=== PATIENT | male | born 1985 | race Caucasian/White ===

== ENCOUNTER 2016-09-10 10:36 | Emergency (ER) | payer OTHER ==
[~2016-09-10] VITALS: Ht 180.3 cm; Wt 72.0 kg
[~2016-09-10 10:36] MED LIST: CLIN1CAP6 PO; DIAZ5TAB PO; IBUP800T23 PO
[2016-09-10 10:38] VITALS: BP 167/91; PULSE 117; RESP 15; TEMP 98.4; O2SAT 95
[2016-09-10] MEDS ORDERED: SODIUM CHLORIDE 0.9% FLUSH 5 ML FLUSH IVF PRN (12:30)
[2016-09-10] MEDS ORDERED: ASPIRIN 81 MG CHEW TAB PO ONE (12:30)
--- NOTE | 2016-09-10 12:30 | PD ---
HPI Chief Complaint: Skin Problem Time Seen by Provider: 12:29 Travel History International Travel<30 days: No Contact w/Intl Traveler<30days: No Traveled to known affect area: No History of Present Illness HPI 30-year-old male presents to the emergency Department with complaint of an infection to his right hand times 2 days. Reports being seen about a month ago for infections to his right arm that he took clindamycin for and they went away. He said he scratched himself on his hand this morning and it turned into an infection again. Denies fever, chills nausea, vomiting. He is complaining of chest pain and shortness of breath since last night. He said he couldn't sleep because he couldn't breathe last night. He does have history of anxiety and took 2 of his anxiety medications morning with no relief of his symptoms. Reports the chest pain is substernal. Reports it as a pressure. Says that it is constant and fluctuates in intensity. Rates the chest pain a 5 or 6 out of 10 at this time. Has not taken any medications or drainage from his to alleviate his symptoms. No known aggravating or relieving factors. Denies family cardiac history. Reports tobacco use daily. Denies history of DVT or PE. Denies hemoptysis. Denies recent travel, hospitalization, surgery. Denies IV drug use. Denies leg edema. Allergic to penicillin. Up-to-date on tetanus vaccination. No other modifying factors or associated signs and symptoms. PFSH Past Medical History Arthritis: No Asthma: No Anxiety: Yes Depression: No Cancer: No High Cholesterol: No Chemotherapy: No Chest Pain: No Congestive Heart Failure: No COPD: No Cerebrovascular Accident: No Diabetes: No Diminished Hearing: No GERD: Yes Headaches: Yes Kidney Stones: No Radiation Therapy: No Renal Failure: No Seizures: No Sleep Apnea: No Thyroid Disease: No Past Surgical History Abdominal Surgery: No Ear Surgery: No Eye Surgery: No Oral Surgery: Yes (4 WISDOM TEETH) Thoracic Surgery: No Social History Alcohol Use: Yes (DAILY) Tobacco Use: Yes (3-4 CIGS DAILY) Substance Use: No Allergies-Medications (Allergen,Severity, Reaction): Coded Allergies: Penicillin (Verified Allergy, Severe, HIVES, 09/10/16) Reported Meds & Prescriptions Reported Meds & Active Scripts Active Ibuprofen 800 Mg Tab 800 Mg PO Q6HR PRN Clindamycin (Clindamycin HCl) 300 Mg Cap 450 Mg PO Q8H 10 Days Reported Diazepam 5 Mg Tab 5 Mg PO BID PRN Review of Systems Except as stated in HPI: all other systems reviewed are Neg Physical Exam Narrative GENERAL: Well-nourished, well-developed male patient, in no acute distress; afebrile, nontoxic-appearing SKIN: Warm and dry. There is an indurated area to the dorsal aspect of the right hand which measures about 0.5 cm in diameter. It is fluctuant and there is pointing, but no drainage. There is a zone of inflammation around it but no lymphangitis. Right upper extremity is supple and nontender with 2+ radial pulses and sensory intact without erythema or edema. HEAD: Atraumatic. Normocephalic. EYES: Pupils equal and round. No scleral icterus. No injection or drainage. ENT: Mucosa pink and moist. NECK: Trachea midline. No JVD. CHEST: No reproducible chest wall tenderness; no crepitance or deformity. No retractions or use of accessory muscles. CARDIOVASCULAR: Tachycardic rate and rhythm 110-120's. No murmur appreciated. RESPIRATORY: No accessory muscle use. Clear to auscultation. Breath sounds equal bilaterally. GASTROINTESTINAL: Abdomen soft, non-tender, nondistended. Hepatic and splenic margins not palpable. Bowel sounds are active 4 quadrants. MUSCULOSKELETAL: No obvious deformities. No clubbing. No cyanosis. No edema. NEUROLOGICAL: Awake and alert. Oriented 3. No obvious cranial nerve deficits. Motor grossly within normal limits. Normal speech. Moves all extremities. 5/5 strength to all extremities. PSYCHIATRIC: Appropriate mood and affect; insight and judgment normal. Data Data Last Documented VS Vital Signs Date Time Temp Pulse Resp B/P Pulse Ox O2 Delivery O2 Flow Rate FiO2 09/10/16 13:10 98 Room Air 09/10/16 13:10 87 18 128/85 129/90 09/10/16 10:38 98.4 Orders Electrocardiogram (09/10/16 12:25) Basic Metabolic Panel (Bmp) (09/10/16 12:25) Complete Blood Count With Diff (09/10/16 12:25) Magnesium (Mg) (09/10/16 12:25) Prothrombin Time / Inr (Pt) (09/10/16 12:25) Act Partial Throm Time (Ptt) (09/10/16 12:25) Troponin I (09/10/16 12:25) Chest, Single Ap (09/10/16 12:25) Ecg Monitoring (09/10/16 12:25) Bilateral Bp Monitoring (09/10/16 12:25) Iv Access Insert/Monitor (09/10/16 12:25) Oximetry (09/10/16 12:25) Oxygen Administration (09/10/16 12:25) Aspirin Chew (Aspirin Chew) (09/10/16 12:30) Sodium Chloride 0.9% Flush (Ns Flush) (09/10/16 12:30) Ct Pulmonary Angiogram (09/10/16 ) Wound Culture And Gram Stain (09/10/16 12:25) Iohexol 350 Inj (Omnipaque 350 Inj) (09/10/16 13:44) Labs Laboratory Tests Test 09/10/16 12:55 White Blood Count 10.3 TH/MM3 Red Blood Count 4.92 MIL/MM3 Hemoglobin 14.9 GM/DL Hematocrit 44.1 % Mean Corpuscular Volume 89.6 FL Mean Corpuscular Hemoglobin 30.2 PG Mean Corpuscular Hemoglobin 33.7 % Concent Red Cell Distribution Width 14.3 % Platelet Count 275 TH/MM3 Mean Platelet Volume 6.3 FL Neutrophils (%) (Auto) 76.0 % Lymphocytes (%) (Auto) 16.1 % Monocytes (%) (Auto) 6.7 % Eosinophils (%) (Auto) 0.7 % Basophils (%) (Auto) 0.5 % Neutrophils # (Auto) 7.8 TH/MM3 Lymphocytes # (Auto) 1.6 TH/MM3 Monocytes # (Auto) 0.7 TH/MM3 Eosinophils # (Auto) 0.1 TH/MM3 Basophils # (Auto) 0.1 TH/MM3 CBC Comment DIFF FINAL Differential Comment Prothrombin Time 11.1 SEC Prothromb Time International 1.0 RATIO Ratio Activated Partial 27.5 SEC Thromboplast Time Sodium Level 137 MEQ/L Potassium Level 4.0 MEQ/L Chloride Level 102 MEQ/L Carbon Dioxide Level 25.6 MEQ/L Anion Gap 9 MEQ/L Blood Urea Nitrogen 9 MG/DL Creatinine 0.86 MG/DL Estimat Glomerular Filtration 106 ML/MIN Rate Random Glucose 77 MG/DL Calcium Level 8.9 MG/DL Magnesium Level 2.1 MG/DL Troponin I LESS THAN 0.02 NG/ML MDM Medical Decision Making Medical Screen Exam Complete: Yes Emergency Medical Condition: Yes Medical Record Reviewed: Yes Differential Diagnosis Cellulitis, abscess, septic emboli, NC, ACS, PE Narrative Course 30-year-old male with a small abscess to the dorsal aspect of his right hand. See my procedure note for incision and drainage. Wound culture pending. Patient is also complaining of chest pain and shortness of breath since yesterday. Patient is tachycardic from 110 to 120s. He denies history of DVT or PE. No family history of cardiac events at an early age. Patient denies IV drug use. Has history of anxiety and took 2 of his anxiety medications this morning with no relief of shortness of breath or chest pain. I spoke with Dr. Barrera, my attending physician, and he agreed the patient needs labs and imaging, and recommended CTA. Labs and imaging ordered. EKG ordered. Patient placed on cardiopulmonary monitor. IV set obtained. 1256: EKG with normal sinus rhythm; no ST elevation or depression. 1335: Chest X-ray with no acute disease. CBC unremarkable. Coags unremarkable. BMP unremarkable. Troponin less than 0.02. Magnesium 2.1. 1444: CT pulmonary angiogram without evidence of pulmonary embolism and with no acute findings. Discussed findings with the patient and patient has Low Score (0-3 points), risk of MACE of 0.9-1.7%; patient feels comfortable going home and not being admitted to the chest pain center for further treatment and evaluation. Clindamycin prescribed for home. Patient is medically cleared and stable for discharge. Discussed reasons to return to the emergency department. Instructed patient to follow up with primary care provider. Patient agrees with treatment plan. The patients vital signs are stable and the patient is stable for outpatient follow-up and treatment. Patient discharged home, stable and in no acute distress. Diagnosis Primary Impression: Abscess of right hand Additional Impression: Chest pain Qualified Code: R07.9 - Chest pain, unspecified type Referrals: Primary Care Physician Patient Instructions: Abscess (ED), Abscess Follow-up (ED), Chest Pain (ED), General Instructions, Noncardiac Chest Pain (ED) Additional Instructions: Complete full course of antibiotics Warm compresses to the affected area Keep area clean and dry Ibuprofen or Tylenol as directed and as needed for pain and inflammation Follow-up with primary care provider Return to emergency department immediately with worsening of symptoms Med/Other Pt SpecificInfo: Prescription(s) given Scripts Clindamycin 150 Mg [id number] Mg PO Q6H 10 Days Ref 0 Prov:Reny Lam 09/10/16 Disposition: 01 DISCHARGE HOME Condition: Stable Reny Lam Sep 10, 2016 12:29
[2016-09-10 13:10] VITALS: BP_SYST 128; BP_SYST 129; BP_DIAS 85; BP_DIAS 90; PULSE 87; RESP 18; O2SAT 98
[2016-09-10 13:13] LABS: AUTOMATED NEUTROPHIL # 7.8 TH/MM3 (1.8-7.7); BASOPHIL # 0.1 TH/MM3 (0-0.2); BASOPHIL % 0.5 % (0.0-2.0); EOSINOPHIL # 0.1 TH/MM3 (0-0.4); EOSINOPHIL % 0.7 % (0.0-4.0); HEMATOCRIT 44.1 % (39.0-51.0); HEMO FLAGS DIFF FINAL; LYMPH % 16.1 % (9.0-44.0); LYMPHOCYTE # 1.6 TH/MM3 (1.0-4.8); MEAN CELL VOLUME 89.6 FL (80.0-100.0); MEAN CORPUSCULAR HEMOGLOBIN 30.2 PG (27.0-34.0); MEAN CORPUSCULAR HGB CONC 33.7 % (32.0-36.0); MONO % 6.7 % (0.0-8.0); PLATELET COUNT 275 TH/MM3 (150-450); RED BLOOD COUNT 4.92 MIL/MM3 (4.50-5.90); RED CELL DISTRIBUTION WIDTH 14.3 % (11.6-17.2); WHITE BLOOD COUNT 10.3 TH/MM3 (4.0-11.0)
--- NOTE | 2016-09-10 13:21 | RADRPT ---
EXAM DATE/TIME: 09/10/2016 12:29 [facility] COMPARISON: No previous studies available for comparison. INDICATIONS : Chest pressure MEDICAL HISTORY : None. SURGICAL HISTORY : None. ENCOUNTER: Initial ACUITY: 1 day PAIN SCORE: 0/10 LOCATION: Bilateral chest FINDINGS: A single view of the chest demonstrates the lungs to be symmetrically aerated without evidence of mas s, infiltrate or effusion. The cardiomediastinal contours are unremarkable. Osseous structures are intact. CONCLUSION: No acute disease. Steven Nazario MD on September 10, 2016 at 13:20 Board Certified Radiologist. This report was verified electronically.
[2016-09-10 13:25] LABS: APTT (PATIENT) 27.5 SEC (24.3-30.1); PROTHROMBIN TIME - PATIENT 11.1 SEC (9.8-11.6)
[2016-09-10 13:27] LABS: ANION GAP 9 MEQ/L (5-15); BICARBONATE 25.6 MEQ/L (21.0-32.0); BLOOD UREA NITROGEN 9 MG/DL (7-18); CHLORIDE 102 MEQ/L (98-107); GLOMERULAR FILTRATION RATE 106 ML/MIN (>89); MAGNESIUM 2.1 MG/DL (1.5-2.5); SODIUM (NA) 137 MEQ/L (136-145)
[2016-09-10] MEDS ORDERED: IOHEXOL 350 MG/ML 10 ML VIAL (for RAD DIAG) IV ONE (13:44)
--- NOTE | 2016-09-10 14:12 | RADRPT ---
EXAM DATE/TIME: 09/10/2016 13:42 [facility] COMPARISON: No previous studies available for comparison. INDICATIONS : Short of breath with chest pain. Evaluate for embolism. IV CONTRAST: 50 cc Omnipaque 350 (iohexol) IV RADIATION DOSE: 7.22 CTDIvol (mGy) MEDICAL HISTORY : Gastroesophageal reflux disease. SURGICAL HISTORY : None. ENCOUNTER: Initial ACUITY: 1 day PAIN SCALE: 5/10 LOCATION: medial chest TECHNIQUE: Volumetric scanning of the chest was performed using a pulmonary embolism protocol MIP images were re constructed. Using automated exposure control and adjustment of the mA and/or kV according to patien t size, radiation dose was kept as low as reasonably achievable to obtain optimal diagnostic quality images. FINDINGS: PULMONARY ARTERIES: No filling defects are seen in the pulmonary arteries through the segmental level. LUNGS: There is no consolidation or pneumothorax . No concerning pulmonary nodule is visualized. PLEURAE: There is no pleural thickening or pleural effusion. MEDIASTINUM: There is good visualization of the great vessels of the middle mediastinum. No evidence of mediastin al or hilar adenopathy/mass. MUSCULOSKELETAL: Within normal limits for patient age. MISCELLANEOUS: The visualized upper abdominal organs demonstrate no acute abnormality. CONCLUSION: 1. No evidence for pulmonary embolism. 2. No infiltrate. Steven Nazario MD on September 10, 2016 at 14:08 Board Certified Radiologist. This report was verified electronically.
[2016-09-10] MEDS ORDERED: CLIN1CAP5 PO (14:43)
--- NOTE | 2016-09-11 14:24 | EKG ---
Date Performed: 09/10/2016 Time Performed: 12:43:35 PTAGE: 30 years EKG: Sinus rhythm POSSIBLE LEFT ATRIAL ENLARGEMENT POSSIBLE RIGHT VENTRICULAR CONDUCTION DELAY BORDERLINE ECG NO PREVIOUS TRACING DOCTOR: Viry Beltrán Interpretating Date/Time 09/11/2016 14:21:33
== END 2016-09-10 15:25 | disposition home or self-care (01) ==
LOC: NEPB 10:36
DX: L02.511 Cutaneous abscess of right hand (principal); B95.0 Streptococcus, group A, as the cause of diseases classified elsewhere; R07.9 Chest pain, unspecified; R06.02 Shortness of breath; F41.9 Anxiety disorder, unspecified; R00.0 Tachycardia, unspecified; R94.31 Abnormal electrocardiogram [ECG] [EKG]; K21.9 Gastro-esophageal reflux disease without esophagitis; Z72.0 Tobacco use
CPT/HCPCS: 71010; 71275; 80048; 83735; 84484; 85025; 85610; 85730; 87070; 93005; 99285; Q9967

== ENCOUNTER 2017-01-17 18:11 | Emergency (ER) | payer MEDICAID ==
[~2017-01-17] VITALS: Ht 182.9 cm; Wt 77.0 kg
[~2017-01-17 18:11] MED LIST changes: +CLIN1CAP5 PO
[2017-01-17 18:13] VITALS: BP 149/98; PULSE 107; RESP 17; TEMP 98.3; O2SAT 99
--- NOTE | 2017-01-17 18:41 | PD ---
HPI Chief Complaint: Respiratory Symptoms Time Seen by Provider: 18:26 Travel History International Travel<30 days: No Contact w/Intl Traveler<30days: No Traveled to known affect area: No History of Present Illness HPI 31-year-old increased anxiety. Sclerae shortness of breath chest pain ongoing for months. Worse over the past couple weeks. Was taking Valium for most of his life but most recently prescribed Klonopin. Doesn't feel like it's helping. 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 He tried some [id number] homeopathic medicine which helped him sleep last night. History Past Medical History Narrative Medical Anxiety Stomach problems and gastritis Social History Alcohol Use: No Tobacco Use: Yes (quit 1 month ago) Allergies-Medications (Allergen,Severity, Reaction): Coded Allergies: Penicillin (Verified Allergy, Severe, HIVES, 09/10/16) Reported Meds & Prescriptions Reported Meds & Active Scripts Active Clindamycin (Clindamycin HCl) 150 Mg Cap 450 Mg PO Q6H 10 Days Ibuprofen 800 Mg Tab 800 Mg PO Q6HR PRN Clindamycin (Clindamycin HCl) 300 Mg Cap 450 Mg PO Q8H 10 Days Reported Diazepam 5 Mg Tab 5 Mg PO BID PRN Review of Systems Except as stated in HPI: all other systems reviewed are Neg Physical Exam Narrative GENERAL: Well-appearing 31 year-old man, anxious but nontoxic. SKIN: Focused skin assessment warm/dry. CARDIOVASCULAR: Regular rate and rhythm. No murmur appreciated. RESPIRATORY: No accessory muscle use. Clear to auscultation. Breath sounds equal bilaterally. GASTROINTESTINAL: Abdomen soft, non-tender, nondistended. Hepatic and splenic margins not palpable. MUSCULOSKELETAL: No obvious deformities. No clubbing. No cyanosis. No edema. NEUROLOGICAL: Awake and alert. No obvious cranial nerve deficits. Motor grossly within normal limits. Normal speech. PSYCHIATRIC: Anxious. Data Data Last Documented VS Vital Signs Date Time Temp Pulse Resp B/P Pulse Ox O2 Delivery O2 Flow Rate FiO2 01/17/17 18:26 98 Room Air 01/17/17 18:13 98.3 107 17 149/98 Orders Diazepam (Valium) (01/17/17 18:45) [facility] Medical Decision Making Medical Screen Exam Complete: Yes Emergency Medical Condition: Yes Differential Diagnosis Anxiety, ACS, PE, pneumonia, other Narrative Course Medical decision making 31 year-old man history of anxiety chest pain shortness of breath ongoing for months, worse today. Recent evaluation weeks due to pulmonary angiogram x-rays labs all unremarkable. We'll give him some thiamine here. He is in need outpatient follow-up for any titrations or changes to his outpatient medication regimens. Diagnosis Primary Impression: Anxiety Additional Instructions: Follow-up with her primary doctor tomorrow for further treatment of your anxiety. Disposition: 01 DISCHARGE HOME Condition: Stable Harish Aguirre MD January 17, 2017 18:41
[2017-01-17] MEDS ORDERED: DIAZEPAM 5 MG TAB PO ONE (18:45)
== END 2017-01-17 19:52 | disposition home or self-care (01) ==
LOC: NEPD 18:11
DX: F41.9 Anxiety disorder, unspecified (principal); R06.02 Shortness of breath; R07.9 Chest pain, unspecified; Z87.19 Personal history of other diseases of the digestive system; Z87.891 Personal history of nicotine dependence
CPT/HCPCS: 99283